=== PATIENT | male | born 1935 | race Caucasian/White ===

== ENCOUNTER 2019-11-05 12:05 | Outpatient (CLI) | payer MEDICARE, SELFPAY ==
[2019-11-05 13:00] LABS: Hematocrit 44.6 % (42.0-52.0); Hemoglobin 14.4 g/dL (14.0-18.0); Mean Corpuscular HGB Conc 32.3 g/dl (32-36); Mean Corpuscular Hemoglobin 32.6 pg (26-34); Mean Corpuscular Volume 100.9 fl (80-100); Mean Platelet Volume 12.2 fl (7.4-10.4); Platelet Count Result 178 k/mm3 (150-375); Red Blood Count 4.42 M/mm3 (4.6-6.20); Red Cell Distribution Width 12.7 % (11.5-14.5); White Blood Count 6.4 K/mm3 (4.5-10.0)
== END 2019-11-05 12:06 | disposition home or self-care (01) ==
LOC: ANHLAB 12:12
PROVIDERS: PCP Internal Medicine; Visit Provider Internal Medicine Gastroenterology
DX: R19.4 Change in bowel habit (principal)
CPT/HCPCS: 36415; 85027

== ENCOUNTER 2019-12-01 00:19 | Day surgery (SDC) | payer MEDICARE, SELFPAY ==
[2019-11-30 13:42] VITALS: BMI 30.6
[2019-12-01 07:53] VITALS: BP 167/79; PULSE 76; RESP 18; TEMP 37.3; O2SAT 95; BMI 29.1
--- NOTE | 2019-12-01 07:57 | P.PNAN_ITS ---
Anes - Initial Pre Proc Eval Procedure: Operation Date: 12/01/19 08:30 Proposed Procedures p Colonoscopy - Cezar Hong MD Date/Time: 12/01/19 07:57 Surgeon: Czear Hong MD Pre Op Diagnosis: Occult GI Bleeding Patient Data Age: 84 Gender: M Height: 1.75 m Weight: 94 kg Allergies Allergy/AdvReac Type Severity Reaction Status Date / Time cephalexin Allergy Unknown Keflex Verified 12/01/19 07:51 ciprofloxacin Allergy Unknown Hives / Verified 12/01/19 07:51 Red Face nite time equate Allergy Severe Swelling Uncoded 12/01/19 07:51 PHENAL (VEGATABLE) Allergy Intermediate RASH Uncoded 12/01/19 07:51 Home Medications Medication Instructions Recorded Confirmed Type acetaminophen 500 mg tablet 500 mg PO Q4-6H PRN tablet 07/22/19 11/30/19 History aspirin 81 mg tablet,delayed 81 mg PO DAILY 07/22/19 11/30/19 History release gabapentin 100 mg capsule 200 mg PO BID cap 07/22/19 11/30/19 History omega 9-ahv-bpb-fish oil 1,000 mg 1 cap PO DAILY cap 07/22/19 11/30/19 History (120 mg-180 mg) capsule omeprazole 20 mg capsule,delayed 20 mg PO DAILY 07/22/19 11/30/19 History release vit C 250 mg-E 200 unit-zinc 40 1 tablet PO BID 07/22/19 11/30/19 History mg-copper 1 pd-ccypfz-cjndwe capsule budesonide-formoterol HFA 160 2 puff INHALATION Q12H #10.2 gm 07/26/19 11/30/19 Rx mcg-4.5 mcg/actuation aerosol inhaler albuterol sulfate 90 mcg/actuation 2 puff INHALATION Q4-6H PRN #8.5 gm 11/21/19 11/30/19 Rx aerosol inhaler lisinopril 20 mg tablet 20 mg PO BID #180 tablet 11/28/19 12/01/19 Rx allopurinol 150 mg PO DAILY 11/30/19 11/30/19 History aspirin-caffeine [Back and Body 1 tablet PO PRN PRN 11/30/19 11/30/19 History Pain Reliever] naproxen sodium [Aleve] 220 mg PO Q12H PRN 11/30/19 11/30/19 History Patient hx anesthesia problems: none Family hx anesthesia problems: none [facility] Past Medical History Medical History (Updated 11/30/19 @ 14:14 by Sumeet Jennings DO) Chronic low back pain COPD (chronic obstructive pulmonary disease) History of cervical fracture History of gout Hypertension FELIX (nonalcoholic steatohepatitis) Vitamin D deficiency Surgical History Surgical History (Updated 11/30/19 @ 14:14 by Sumeet Jennings DO) History of appendectomy Social History Social History Smoking status: Former smoker Smoking end date: 09/21/09 Alcohol intake: current Anes - Eval Final PreProcedure Day of Procedure 12/01/19 07:57 Patient weight: obese Heart: regular rate and rhythm Lungs: clear to auscultation and normal air movement Airway: Mallampati scale class II Neurological: alert and oriented Last oral intake: >/= 8 hours ASA classification: III Emergent: no Anesthetic plan: proceed Anesthesia type and monitoring: general GIVS and standard monitoring Informed Consent: The patient's anesthetic plan and its attendant risks and benefits were discussed with the patient/family/POA. Questions were solicited and answers provided to the satisfaction of the patient/family/POA.
[2019-12-01] MEDS: LACTATED RINGERS 1,000 ML 150 ML IV CONT (08:06)
[2019-12-01] MEDS: SIMETHICONE ORAL SUSPENSION 20 MG/0.3 ML 30 ML BOTTLE 0.6 ML IRRIGATION (08:43)
--- NOTE | 2019-12-01 08:57 | WPDGICN ---
Assessment and Plan Additional Plan This is an 84-year-old white male patient seen in evaluation at the request of Dr. Gagandeep Adams. patient recently noticed bright red blood per rectum. He noticed an episode of lower abdominal pain associated with this. He no longer sees blood in his stools. Follow-up stool Hemoccult however remains Hemoccult positive. Patient denies any additional bleeding. He states his abdominal pain is resolved. Family history is noncontributory. His mother had breast cancer. Past medical history is significant for COPD, hypertension, GE reflux disease, medications include lisinopril, omeprazole, allopurinol, gabapentin, Symbicort, albuterol, no known medical allergies. Physical exam reveals patient to be comfortable at rest. Vital signs stable. HEENT exam unremarkable. Lungs are clear to auscultation and percussion. Heart is without murmur or extra sounds. Abdominal exam bowel sounds are present soft nontender with no organomegaly. Digital external rectal exam normal. Impression 1. Occult blood in stool. 2. History of rectal bleeding. 3. Change in bowel habits. 4. COPD. Plan is for high-fiber diet. A colonoscopy has been requested will be performed. Further recommendations will be given after endoscopy. GI Consult Note Consult date/time: 12/01/19 08:57 HPI: Horacio Garcia is a 84 year old male [facility] Past Medical History Medical History (Updated 11/30/19 @ 14:14 by Sumeet Jennings DO) Chronic low back pain COPD (chronic obstructive pulmonary disease) History of cervical fracture History of gout Hypertension FELIX (nonalcoholic steatohepatitis) Vitamin D deficiency Surgical History Surgical History (Updated 11/30/19 @ 14:14 by Sumeet Jennigns DO) History of appendectomy Social History Social History Smoking status: Former smoker Smoking end date: 09/21/09 Alcohol intake: current Meds Home Medications and Allergies Home Medications Medication Instructions Recorded Confirmed Type acetaminophen 500 mg tablet 500 mg PO Q4-6H PRN tablet 07/22/19 11/30/19 History aspirin 81 mg tablet,delayed 81 mg PO DAILY 07/22/19 11/30/19 History release gabapentin 100 mg capsule 200 mg PO BID cap 07/22/19 11/30/19 History omega 9-fve-bls-fish oil 1,000 mg 1 cap PO DAILY cap 07/22/19 11/30/19 History (120 mg-180 mg) capsule omeprazole 20 mg capsule,delayed 20 mg PO DAILY 07/22/19 11/30/19 History release vit C 250 mg-E 200 unit-zinc 40 1 tablet PO BID 07/22/19 11/30/19 History mg-copper 1 xh-fpoybn-ecqsln capsule budesonide-formoterol HFA 160 2 puff INHALATION Q12H #10.2 gm 07/26/19 11/30/19 Rx mcg-4.5 mcg/actuation aerosol inhaler albuterol sulfate 90 mcg/actuation 2 puff INHALATION Q4-6H PRN #8.5 gm 11/21/19 11/30/19 Rx aerosol inhaler lisinopril 20 mg tablet 20 mg PO BID #180 tablet 11/28/19 12/01/19 Rx allopurinol 150 mg PO DAILY 11/30/19 11/30/19 History aspirin-caffeine [Back and Body 1 tablet PO PRN PRN 11/30/19 11/30/19 History Pain Reliever] naproxen sodium [Aleve] 220 mg PO Q12H PRN 11/30/19 11/30/19 History Allergies Allergy/AdvReac Type Severity Reaction Status Date / Time cephalexin Allergy Unknown Keflex Verified 12/01/19 07:51 ciprofloxacin Allergy Unknown Hives / Verified 12/01/19 07:51 Red Face nite time equate Allergy Severe Swelling Uncoded 12/01/19 07:51 PHENAL (VEGATABLE) Allergy Intermediate RASH Uncoded 12/01/19 07:51 Vital Signs Vital Signs - 24 hr 12/01/19 07:53 Temperature 37.3 C Pulse Rate 76 Respiratory Rate 18 Blood Pressure 167/79 H Pulse Oximetry 95
[2019-12-01 08:59] VITALS: BP 88/56; PULSE 70; RESP 18; O2SAT 92
[2019-12-01 09:09] VITALS: BP 115/56; PULSE 71; RESP 18; O2SAT 94
[2019-12-01 09:19] VITALS: BP 129/77; PULSE 64; RESP 18; O2SAT 93
== END 2019-12-01 09:43 | disposition home or self-care (01) ==
PROVIDERS: PCP Internal Medicine; Visit Provider Internal Medicine Gastroenterology
PROC: 0DJD8ZZ Inspection of Lower Intestinal Tract, Via Natural or Artificial Opening Endoscopic (ICD-10-PCS; CPT 45378; principal; 2019-12-01 08:30)
DX: K62.5 Hemorrhage of anus and rectum (principal); D12.5 Benign neoplasm of sigmoid colon; K63.5 Polyp of colon; K57.30 Diverticulosis of large intestine without perforation or abscess without bleeding; K64.8 Other hemorrhoids; R19.4 Change in bowel habit; I10 Essential (primary) hypertension; J44.9 Chronic obstructive pulmonary disease, unspecified; K75.81 Nonalcoholic steatohepatitis (NASH); E55.9 Vitamin D deficiency, unspecified; M10.9 Gout, unspecified; Z79.82 Long term (current) use of aspirin; E66.9 Obesity, unspecified; Z68.29 Body mass index [BMI] 29.0-29.9, adult
CPT/HCPCS: 45385; 88305; J2704; J7120

== ENCOUNTER 2020-02-07 12:02 | Emergency (ER) | payer MEDICARE, SELFPAY ==
--- NOTE | ~2020-02-07 | CT_ITS ---
EXAMINATION: CT abdomen pelvis wo con DATE: 02/07/2020 16:11 INDICATION: Abdominal pain, diarrhea TECHNIQUE: Computed tomography (CT) of the abdomen and pelvis was performed without intravenous contr ast. Automated exposure control and iterative reconstruction technique were employed. Exam dose: 831 .37 mGy-cm total exam DLP. COMPARISON: 07/02/[address] abdomen pelvis FINDINGS: There is focal infiltrate or atelectasis at the base of the middle lobe. Normal heart size. No pericardial or pleural effusion. There are 2 approximately 8 mm faceted calcified dependent gallstones. No pericholecystic fluid or in flammation. There is a small sliding hiatal hernia. Hepatic steatosis. There are scattered pancreatic calcifications, consistent with chronic pancreatitis. No pancreatic m ass lesion or pancreatic duct dilatation. There is bilateral renal atrophy. Contrast material is noted within the renal collecting systems, ure ters and urinary bladder. No hydroureteronephrosis. There are bilateral fat containing inguinal hernias. There is prominent prostate enlargement. There are numerous diverticula of the left colon; no evidence of diverticulitis. No bowel obstructio n or intraperitoneal free air. There is extensive calcification of the abdominal aorta; focal infrarenal abdominal aortic dilatation up to 2.6 cm diameter. Splenic calcification of the origins of the celiac and superior mesenteric an d particularly the renal arteries. Prominent calcification of the iliac and femoral arteries.. No intraperitoneal or retroperitoneal or pelvic mass lesion or adenopathy or ascites. Diffuse osteopenia. Degenerative changes of the lower thoracic and lumbar spine, including prominent degenerative changes at the apophyseal joints with associated grade 1 anterolisthesis at L4-5. IMPRESSION: Cholelithiasis Hepatic steatosis Small sliding hiatal hernia Chronic pancreatitis Bilateral renal atrophy Prominent prostate enlargement Diverticulosis of the colon; no CT evidence of diverticulitis Reviewed, dictated and finalized at [facility]. Reviewed, dictated and finalized at [facility].
--- NOTE | ~2020-02-07 | CT_ITS ---
EXAMINATION: CTA chest PE protocol DATE: 02/07/2020 14:14 INDICATION: Shortness of breath. Fever and chills. TECHNIQUE: Computed tomography (CT) pulmonary angiogram of the chest was performed with 100 mL Omnipa que-350 intravenous contrast. Additional 3D reconstructions utilizing coronal maximum intensity proje ction (MIP) were performed. The dose-length product was 739.66 mGy-cm. COMPARISON: None FINDINGS: Excellent contrast opacification of the pulmonary arteries. There is mild streak artifact from dense contrast in the superior vena cava and right atrium. Normal scattered motion artifact which does not significantly limit evaluation no pulmonary embolism. Small region of atelectasis/scarring in the rig ht middle lobe. Mild emphysema. Small region of chronic tree-in-bud opacity in the anterior segment o f the right upper lobe likely sequela of chronic pneumonia. Unchanged pattern of mild regular septal line thickening at the periphery of the lower lobes which could represent mild pulmonary edema, atele ctasis or nonspecific interstitial pneumonia (NSIP) pattern chronic interstitial lung disease. No ple ural effusion or pneumothorax. Heart size is normal. Atherosclerotic coronary artery calcification. N o pericardial effusion. Aortic valve calcification. Thoracic aorta is normal in caliber with no disse ction. Again seen is a normal anatomic variant retroesophageal aberrant right subclavian artery. Calc ified AP window lymph nodes consistent with old granulomatous disease. Diffuse hepatic steatosis. Cho lelithiasis. Few scattered dystrophic pancreatic calcifications likely sequela of chronic pancreatiti s. There are bridging osteophytes at multiple levels in the spine, consistent with diffuse idiopathic skeletal hyperostosis (DISH). IMPRESSION: 1. No pulmonary embolism or other acute cardiopulmonary disease. 2. Mild emphysema. 3. Unchanged mild peripheral septal line thickening the bilateral lower lungs which could represent m ild pulmonary edema or atelectasis in the acute setting or and SI PD pattern chronic interstitial fib rosis. 4. Cholelithiasis and pancreatic calcifications which are likely sequela of chronic pancreatitis. Reviewed, dictated and finalized at [facility]. IMPRESSION: 1. No pulmonary embolism or other acute cardiopulmonary disease. 2. Mild emphysema. 3. Unchanged mild peripheral septal line thickening the bilateral lower lungs w hich could represent mild pulmonary edema or atelectasis in the acute setting o r and SI PD pattern chronic interstitial fibrosis. 4. Cholelithiasis and pancreatic calcifications which are likely sequela of chr onic pancreatitis.
--- NOTE | ~2020-02-07 | XR_ITS ---
XR chest 1V portable DATE: 02/07/2020 12:51 INDICATION: Shortness of breath TECHNIQUE: Portable AP chest on 02/07/2020 COMPARISON: 07/01/2019 CT pulmonary scan 03/07/2019 2 view chest FINDINGS: Heart size is within normal range. There is aortic calcification and mild tortuosity. No hi lar or mediastinal enlargement. Bilateral hyperinflation. No pulmonary infiltrate or consolidation, pleural effusion or pulmonary vas cular congestion or pneumothorax. Diffuse osteopenia. Degenerative spurring of the thoracic spine. IMPRESSION: No active cardiopulmonary disease Reviewed, dictated and finalized at [facility].
--- NOTE | 2020-02-07 12:08 | ECG_ITS ---
Measurements Intervals [place] Rate: 78 P: 67 [place]: 156 QRS: 93 QRSD: 132 T: 47 QT: 369 QTc: 422 Interpretive Statements SINUS RHYTHM RIGHT BUNDLE BRANCH BLOCK ABNORMAL ECG Electronically Signed On 02-07-2020 12:40:37 CDT by Wild Ibarra D.O.
[2020-02-07 12:26] LABS: Basophils Percent Auto 0.6 % (0.2-1.2); Eosinophils Absolute Auto 0.1 K/mm3 (0-0.3); Eosinophils Percent Auto 1.9 % (0-4.4); Hematocrit 45.1 % (42.0-52.0); Immature Granulocyte Absolute 0.05 K/mm3 (0.00-0.031); Immature Granulocyte Percent A 0.8 % (0-0.5); Lymphocytes Absolute Auto 1.76 K/mm3 (0.9-3.2); Lymphocytes Percent Auto 27.6 % (18.3-44.2); Mean Corpuscular HGB Conc 33.3 g/dl (32-36); Mean Corpuscular Hemoglobin 32.5 pg (26-34); Mean Corpuscular Volume 97.6 fl (80-100); Mean Platelet Volume 11.7 fl (7.4-10.4); Monocytes Absolute Auto 0.7 K/mm3 (0.1-0.6); Monocytes Percent Auto 11.4 % (2.6-8.5); Neutrophils Absolute Auto 3.7 K/mm3 (1.3-6.7); Neutrophils Percent Auto 57.7 % (45.5-73.1); Platelet Count Result 171 k/mm3 (150-375); Red Blood Count 4.62 M/mm3 (4.6-6.20); Red Cell Distribution Width 12.3 % (11.5-14.5); White Blood Count 6.4 K/mm3 (4.5-10.0)
[2020-02-07 12:34] VITALS: BP 180/77; PULSE 77; RESP 20; TEMP 36.8; O2SAT 98
[2020-02-07 12:37] LABS: Lipase 65 U/L (23-300)
[2020-02-07 12:38] LABS: Partial Thromboplastin Time 32.5 SECONDS (22.3-36.8)
[2020-02-07 12:41] LABS: Alanine Aminotransferase 25 U/L (4-50); Albumin Level 4.4 g/dL (3.5-5.1); Alkaline Phosphatase 75 U/L (38-126); Aspartate Amino Transferase 50 U/L (17-59); Bilirubin,Total 0.8 mg/dL (0.2-1.3); Blood Urea Nitrogen 15 mg/dL (9-20); CRP 1.3 mg/dL (<1.0); Calcium 9.5 mg/dL (8.4-10.2); Carbon Dioxide 24 mmol/L (22-30); Chloride 107 mmol/L (98-107); Estimated Glomerular Filt Rate > 60; Glucose 113 mg/dL (75-110); Sodium 139 mmol/L (137-145)
[2020-02-07 12:44] LABS: Lactic Acid Reflex 1.4 mmol/L (0.7-2.1)
[2020-02-07 12:47] LABS: NT Pro B Type Natriuretic Pept 255 PG/ML (5-100)
--- NOTE | 2020-02-07 12:48 | ED.GENADULT ---
HPI - General Adult General Chief complaint: Shortness of Breath/Dyspnea <XAVIER Estevez Last Filed: 02/07/20 16:54> Stated complaint: fever/chills/sob <XAVIER Estevez Last Filed: 02/07/20 16:54> Time Seen by Provider: 02/07/20 12:03 <XAVIER Estevez Last Filed: 02/07/20 16:54> Source: patient <XAVIER Estevez Last Filed: 02/07/20 16:54> Mode of arrival: ambulatory <XAVIER Estevez Last Filed: 02/07/20 16:54> Limitations: no limitations <XAVIER Estevez Last Filed: 02/07/20 16:54> History of Present Illness HPI narrative: Patient is a 84-year-old male who presents to emergency department for evaluation of shortness of breath has had some runny nose mild sore throat over the course of the last 5 days notes he does have a similar history with COPD as the etiology patient lives at home by himself currently denies any pain injury or trauma patient denies any sick contacts patient on arrival is in the room in no distress notes that he has been using his inhalers with some improvement. Patient was referred to emergency department for evaluation <XAVIER Estevez Last Filed: 02/07/20 16:54> Related Data Home medications: Home Medications Medication Instructions Recorded Confirmed gabapentin 100 mg capsule 200 mg PO BID cap 07/22/19 12/19/19 omega 0-whp-bwl-fish oil 1,000 mg 1 cap PO DAILY cap 07/22/19 12/19/19 (120 mg-180 mg) capsule vit C 250 mg-E 200 unit-zinc 40 1 tablet PO BID 07/22/19 12/19/19 mg-copper 1 rv-expdgd-xvmvcp capsule naproxen sodium [Aleve] 220 mg PO Q12H PRN 11/30/19 12/19/19 allopurinol 300 mg tablet 150 mg PO HS tablet 12/19/19 12/19/19 aspirin 325 mg tablet 325 mg PO DAILY 12/19/19 12/19/19 amlodipine [Norvasc] 5 mg PO HS 02/07/20 <XAVIER Estevez Last Filed: 02/07/20 16:54> Allergies/adverse reactions: Allergies Allergy/AdvReac Type Severity Reaction Status Date / Time cephalexin Allergy Unknown Keflex Verified 02/07/20 12:15 ciprofloxacin Allergy Unknown Hives / Verified 02/07/20 12:15 Red Face nite time equate Allergy Severe Swelling Uncoded 12/19/19 09:09 fennal Allergy Rash Uncoded 02/07/20 12:16 <Obed Quinones PA-C - Last Filed: 02/07/20 16:54> Review of Systems Review of Systems: All systems reviewed & are unremarkable except as noted in HPI and below <Obed Quinones PA-C - Last Filed: 02/07/20 16:54> PMFSH Past Medical History Medical History: Medical History Chronic low back pain COPD (chronic obstructive pulmonary disease) History of cervical fracture History of gout Hypertension FELIX (nonalcoholic steatohepatitis) Vitamin D deficiency <Obed Quinones PA-C - Last Filed: 02/07/20 16:54> Surgical History Surgical History: Surgical History History of appendectomy <Obed Quinones PA-C - Last Filed: 02/07/20 16:54> Social History Social History: Social History Smoking status: Former smoker Smoking end date: 09/21/09 Alcohol intake: current Gender identity (if verbalized by the patient): Male <Obed Quinones PA-C - Last Filed: 02/07/20 16:54> Exam Narrative: Exam Narrative: GENERAL: Well-appearing, well-nourished, and in no acute distress. HEAD: Normocephalic, atraumatic. EYES: PERRLA and EOMI. ENT: Nares clear, no rhinorrhea or epistaxis. Mucous membranes moist. Oropharynx without tonsillar hypertrophy exudate or other lesions. NECK: Supple. No adenopathy or masses. CHEST: Clear to auscultation. No respiratory distress. No wheezes rales or rhonchi HEART: Regular rate and rhythm. No murmur heard. Normal peripheral pulses. ABDOMEN: Soft, nontender, nondistended, normal active bowel sounds. EXTREMITIES: Normal range of motio
[2020-02-07 12:50] LABS: Troponin I < 0.012 ng/mL (0.000-0.034)
[2020-02-07 12:58] LABS: D Dimer 1.97 ug/mL (<0.48)
[2020-02-07 13:05] LABS: Alveolar/Arterial O2 Gradient 20.1 mmHg; Base Excess ABG 0.4 mEq/l (+/-2.0); Carboxyhemoglobin 1.1 % THb (0-2.0); Fractional Inspired Oxygen 21 %; HCO3 ABG 24.5 mEq/l (22.0-26.0); Methemoglobin ABG 0.2 %THb (0-1.5); Oxygen Content ABG 19.3 %vol (16.0-22.0); Oxygen Saturation ABG 96.6 % (95.0-100.0); Oxyhemoglobin 95.6 % THb (90.0-100.0); PCO2 ABG 37.8 mmHg (35.0-45.0); PO2 ABG 84.4 mmHg (80.0-100.0); PO2 FiO2 Ratio Arterial Blood 4.02 %; Reduced Hemoglobin 3.1 %THb (0-5.0); Total Hemoglobin 14.3 g/dL (12.0-18.0); pH ABG 7.429 (7.350-7.450)
[2020-02-07 13:06] LABS: Device ROOM AIR; Site Drawn RIGHT BRACHIAL
[2020-02-07 13:15] LABS: Prothrombin Time 12.4 Seconds (11.1-14.7)
[2020-02-07 17:07] LABS: Add Urine Microscopic? NO; Appearance Urine Clear (Clear); Bilirubin Urine Negative (Negative); Blood Urine Negative (Negative); Color Urine Colorless (Yellow); Glucose Urine UA Negative (Negative); Ketones Urine Negative (Negative); Leukocyte Esterase Ur Negative LEU/UL (Negative); Nitrate Urine Negative (Negative); Protein Urine Negative (Negative); Specific Grav Ur 1.016 (1.001-1.035); Urobilinogen Urine Negative mg/dL (<2.0)
[2020-02-07 17:14] VITALS: BP 181/80; PULSE 71; RESP 17; O2SAT 98
[2020-02-08 04:19] LABS: SARS-CoV-2 RNA PCR Negative
== END 2020-02-07 17:15 | disposition home or self-care (01) ==
PROVIDERS: Emergency Medicine Emergency Medical Services; Emergency Provider Emergency Medicine; PCP Internal Medicine
DX: J44.1 Chronic obstructive pulmonary disease with (acute) exacerbation (principal); Z20.828 Contact with and (suspected) exposure to other viral communicable diseases; M10.9 Gout, unspecified; I10 Essential (primary) hypertension; E55.9 Vitamin D deficiency, unspecified; K75.81 Nonalcoholic steatohepatitis (NASH); Z87.891 Personal history of nicotine dependence; K80.20 Calculus of gallbladder without cholecystitis without obstruction; K44.9 Diaphragmatic hernia without obstruction or gangrene; K86.1 Other chronic pancreatitis; N26.1 Atrophy of kidney (terminal); K57.90 Diverticulosis of intestine, part unspecified, without perforation or abscess without bleeding; N40.0 Benign prostatic hyperplasia without lower urinary tract symptoms; R91.8 Other nonspecific abnormal finding of lung field
CPT/HCPCS: 36415; 36600; 71045; 71275; 74176; 80053; 81003; 82375; 82805; 83050; 83605; 83690; 83880; 84484; 85025; 85380; 85610; 85730; 86140; 87040; 87635; 93005; 99284; C9803; Q9967; U0003

== ENCOUNTER 2020-03-16 12:41 | Emergency (ER) | payer MEDICARE, SELFPAY ==
[2020-03-16 13:02] VITALS: BP 135/88; PULSE 60; RESP 16; TEMP 36.7; O2SAT 99
--- NOTE | 2020-03-16 13:11 | ED.LOWEXIN ---
HPI - Extremity Injury (Lower) General Chief Complaint: Extremity Injury, Lower Stated Complaint: right leg pain Time Seen by Provider: 03/16/20 13:11 Source: patient Mode of arrival: ambulatory Limitations: no limitations History of Present Illness HPI Narrative: Horacio Garcia is an 84 yo male with a PMH of COPD, gout, GERD, comes to express care with right leg pulsation. Concern what is causing that on his lower right leg; has not been taking his aspirin daily as prescribed Related Data Home Medications Medication Instructions Recorded Confirmed gabapentin 100 mg capsule 200 mg PO BID cap 07/22/19 12/19/19 omega 0-bne-izv-fish oil 1,000 mg 1 cap PO DAILY cap 07/22/19 12/19/19 (120 mg-180 mg) capsule vit C 250 mg-E 200 unit-zinc 40 1 tablet PO BID 07/22/19 12/19/19 mg-copper 1 rl-yeanja-pivlsz capsule naproxen sodium [Aleve] 220 mg PO Q12H PRN 11/30/19 12/19/19 allopurinol 300 mg tablet 150 mg PO HS tablet 12/19/19 12/19/19 aspirin 325 mg tablet 325 mg PO DAILY 12/19/19 12/19/19 amlodipine [Norvasc] 5 mg PO HS 02/07/20 Allergies Allergy/AdvReac Type Severity Reaction Status Date / Time cephalexin Allergy Unknown Keflex Verified 02/07/20 12:15 ciprofloxacin Allergy Unknown Hives / Verified 02/07/20 12:15 Red Face nite time equate Allergy Severe Swelling Uncoded 12/19/19 09:09 fennal Allergy Rash Uncoded 02/07/20 12:16 Review of Systems Review of Systems: Narrative: CONSTITUTIONAL: Denies fever, chills, sweats. EYES: Denies visual changes, redness, discharge. ENT: Denies rhinorrhea, congestion, sore throat, otalgia. CARDIOVASCULAR: Denies chest pain, palpitations, edema. RESPIRATORY: Denies dyspnea, wheezing, cough GASTROINTESTINAL: Denies abdominal pain, nausea, vomiting, diarrhea. GENITOURINARY: Denies dysuria, hematuria, abnormal discharge SKIN: Denies rash or itching. NEUROLOGIC: Denies numbness, or focal weakness. PSYCHIATRIC: Denies anxiety or depression. Right lower leg small superficial lump PMFSH Past Medical History Medical History Chronic low back pain COPD (chronic obstructive pulmonary disease) History of cervical fracture History of gout Hypertension FELIX (nonalcoholic steatohepatitis) Vitamin D deficiency Surgical History Surgical History History of appendectomy Family History Family History Mother Family history of malignant neoplasm of breast in first degree relative Patient's mother is Father Patient's father is Acute myocardial infarction Sibling Patient's sister is Patient's brother is Acute myocardial infarction Other Cerebrovascular accident Social History Social History Smoking status: Former smoker Smoking end date: 09/21/09 Alcohol intake: current Gender identity (if verbalized by the patient): Male Comments At time of signature, I agree with nursing past medical, surgical, social and family history. There is no relevant family history pertinent to the presenting complaint. Exam Narrative: Exam Narrative: GENERAL: This is a well-nourished, well-developed patient, in mild distress. HEAD: normocephalic, atraumatic. EYES: Sclera clear/white. Vision is grossly intact. EARS: External ears normal, . Hearing grossly intact. NOSE: External nose normal without nasal discharge, nares without redness, no rhinorrhea. THROAT: Mucous membranes moist, NECK: Neck supple, CARDIOVASCULAR: Regular rate and rhythm without murmurs, gallops, or rubs. RESPIRATORY: Clear to auscultation. Breath sounds equal bilaterally. No wheezes, rales, or rhonchi. GASTROINTESTINAL: Abdomen soft, SKIN: warm, intact with no suspicious lesions or rash, good texture and turgor. s
== END 2020-03-16 13:40 | disposition home or self-care (01) ==
PROVIDERS: Emergency Provider Nurse Practitioner; PCP Internal Medicine
DX: M62.838 Other muscle spasm (principal); J44.9 Chronic obstructive pulmonary disease, unspecified; M10.9 Gout, unspecified; K21.9 Gastro-esophageal reflux disease without esophagitis; Z79.82 Long term (current) use of aspirin; K75.81 Nonalcoholic steatohepatitis (NASH); E55.9 Vitamin D deficiency, unspecified; Z87.891 Personal history of nicotine dependence
CPT/HCPCS: 99213; G0463

== ENCOUNTER 2020-03-18 14:25 | Observation (INO) | payer MEDICARE, SELFPAY ==
[2020-03-18] VITALS (7 sets, daily range): BP systolic 138–174; BP diastolic 56–90; PULSE 50–68; RESP 16–18; TEMP 35.3–36.6; O2SAT 95–99; BMI 31.2
--- NOTE | ~2020-03-18 | XR_ITS ---
EXAMINATION: XR hip RT 2V w AP pelvis INDICATION: Right hip pain TECHNIQUE: AP view of the pelvis and two views of the right hip are obtained. COMPARISON: 08/03/2014 FINDINGS: There is moderate bilateral hip osteoarthritis. Bone alignment is normal. There is no fract ure. Calcified atherosclerosis is noted. IMPRESSION: 1. Moderate hip osteoarthritis without acute findings. Reviewed, dictated and finalized at location A.
--- NOTE | ~2020-03-18 | XR_ITS ---
EXAMINATION: XR chest 2V DATE: 03/18/2020 15:56 INDICATION: Weakness and chest heaviness TECHNIQUE: AP and lateral views of the chest are obtained. COMPARISON: 02/07/2020 FINDINGS: The lungs are free of acute opacities. There is no pleural effusion or pneumothorax. The ca rdiomediastinal silhouette is normal. There are bridging osteophytes at multiple levels in the spine, consistent with diffuse idiopathic skeletal hyperostosis (DISH). IMPRESSION: 1. No acute cardiopulmonary abnormality. Reviewed, dictated and finalized at location A.
--- NOTE | ~2020-03-18 | CT_ITS ---
EXAMINATION: CT brain wo con INDICATION: Weakness COMPARISON: 12/16/2016 TECHNIQUE: Standard unenhanced head CT. The dose-length product (DLP) was 680.32 mGy-cm. The mA was a djusted according to patient size. Iterative reconstruction technique was employed. FINDINGS: There is no acute intraparenchymal hemorrhage. No evidence of mass lesion. No evidence of a cute infarction. There is moderate periventricular and subcortical hypodensity probably related to sm all vessel ischemic disease. There is moderate prominence of the sulci and ventricles related to cere bral atrophy. Intracranial calcified cerebral atherosclerosis is noted. There are no extra-axial jasper ections. There is no mass effect or midline shift. Changes in the globes are likely from ocular lens surgery. There is mild mucosal thickening of the paranasal sinuses. IMPRESSION: 1. No acute intracranial abnormality. 2. Age related findings. Reviewed, dictated and finalized at location A.
--- NOTE | ~2020-03-18 | CT_ITS ---
EXAMINATION: CT [facility] EXAM DATE: 03/20/2020 14:51 INDICATION: Right-sided headache. Neck pain. TECHNIQUE: Spiral CT of the cervical spine was performed without contrast. Axial images were reviewe d. Coronal and sagittal reformatted images were also reviewed. The dose-length product (DLP) for thi s examination was 530.15 mGy-cm. The exposure was tailored according to patient size (auto mA exposu re control), and iterative reconstruction (ASIR) was used as additional dose reduction technique. [facility] is no prior study for comparison. FINDINGS: There is moderate disc disease C4-T2, mild to moderate at the upper cervical levels. There is overlying soft tissue swelling. There are no acute fractures identified. There are no osteoblasti c or osteolytic lesions identified. C6 laminectomies. The odontoid process is intact. The lateral ma sses of C1 line up with C2. Aberrant right subclavian artery, congenital variant. Level by level evaluation: C2-C3: There is a mild diffuse disc bulge. Uncovertebral joint arthropathy: Mild to moderate right, mild left. Facet joint arthropathy: Moderate right, mild left. Neural foraminal stenosis: Mild to moderate right, mild left. Central canal stenosis: Minimal. C3-C4: There is a mild to moderate diffuse disc bulge. Uncovertebral joint arthropathy: Moderate bilateral. Facet joint arthropathy: Moderate to severe bilateral. Neural foraminal stenosis: Moderate to severe left, moderate right. Central canal stenosis: Mild.. C4-C5: There is a mild to moderate diffuse disc bulge. Uncovertebral joint arthropathy: Moderate left, mild to moderate right. Facet joint arthropathy: Severe right, mild to moderate left. Neural foraminal stenosis: Moderate to severe right, moderate left. Central canal stenosis: Mild. C5-C6: There is a mild diffuse disc bulge. Uncovertebral joint arthropathy: Moderate. Facet joint arthropathy: Severe right, mild to moderate left. Neural foraminal stenosis: Moderate to severe right, moderate left. Central canal stenosis: Mild. C6-C7: There is a mild diffuse disc bulge. Uncovertebral joint arthropathy: Moderate left, mild to moderate right. Facet joint arthropathy: Moderate bilateral. Neural foraminal stenosis: Severe left, mild to moderate right. Central canal stenosis: Posterior decompression. C7-T1: There is a mild diffuse disc bulge. Uncovertebral joint arthropathy: Mild to moderate left, mild right. Facet joint arthropathy: Mild to moderate bilateral. Neural foraminal stenosis: Mild to moderate right, mild left. Central canal stenosis: Mild. IMPRESSION: 1. Advanced cervical spondylosis as detailed above. Reviewed, dictated and finalized at location B.
--- NOTE | ~2020-03-18 | XR_ITS ---
EXAMINATION: XR chest 2V DATE: 03/19/2020 19:09 INDICATION: Cough TECHNIQUE: AP and lateral views of the chest are obtained. COMPARISON: 03/18/2019 FINDINGS: The lungs are free of acute opacities. There is no pleural effusion or pneumothorax. The ca rdiomediastinal silhouette is normal. There are bridging osteophytes at multiple levels in the spine, consistent with diffuse idiopathic skeletal hyperostosis (DISH). IMPRESSION: 1. No acute cardiopulmonary abnormality. Reviewed, dictated and finalized at location A.
--- NOTE | ~2020-03-18 | XR_ITS ---
. EXAMINATION: XR knee RT 3V DATE: 03/20/2020 13:13 INDICATION: Nontraumatic right knee pain TECHNIQUE: Anteroposterior, 2 oblique, sunrise and crosstable lateral views of the right knee were ob tained COMPARISON: None. FINDINGS: Alignment is normal. No fracture. Chondrocalcinosis including of the menisci at the medial and later al compartments is relatively preserved. Joint spaces on nonweightbearing imaging. Joint space narrow ing in the patellofemoral compartment with osteochondral lesion versus erosion along the cephalad asp ect of the lateral patellar facet. No joint effusion/layering lipohemarthrosis. Small enthesophyte at the patellar insertion of the distal quadriceps tendon. Prominent prepatellar soft tissue swelling. IMPRESSION: 1. Collapsed osteochondral lesion versus erosion at the lateral patellar facet. 2. Chondrocalcinosis at the medial and lateral menisci. Reviewed, dictated and finalized at location A.
--- NOTE | ~2020-03-18 | US_ITS ---
EXAMINATION: US venous doppler LE EXAM DATE: 03/20/2020 14:37 INDICATION: Right leg swelling, pain. TECHNIQUE: Multiple grayscale, color flow and Doppler images of the lower extremity deep venous syste ms bilaterally were obtained and reviewed. Comparison is made to prior examination from 07/02/2019. FINDINGS: Right side: The right common femoral, femoral and profunda veins demonstrate normal color flow, respi ratory variation, augmentation and compressibility. Compressibility, color flow confirmed within the right popliteal, posterior tibial, peroneal, and greater saphenous veins. Left side: The left common femoral, femoral and profunda veins demonstrate normal color flow, respira tory variation, augmentation and compressibility. Compressibility, color flow confirmed within the l eft popliteal, posterior tibial, peroneal, and greater saphenous veins. IMPRESSION: 1. No lower extremity deep venous thrombosis bilaterally. Reviewed, dictated and finalized at location B.
--- NOTE | 2020-03-18 14:33 | ED.GENADULT ---
HPI - General Adult General Chief complaint: Unspecified Stated complaint: weakness/swelling in lower extremities Time Seen by Provider: 03/18/20 14:32 Source: patient and EMS Mode of arrival: EMS Limitations: no limitations History of Present Illness HPI narrative: Patient is an 84-year-old male with a history of COPD, gout, who presents for evaluation of feeling off. Patient states he has felt unwell over the past 48 hours. He states he started a new medication prescribed to him from an urgent care for muscle spasm called baclofen. Since starting that medication he has not been feeling well. Pt states he has taken five tablets over two days and has felt more unwell and weak with each dose of medication. Patient denies any headache, chest pain or leg pain. He denies any leg swelling or rash. No chest pain or shortness of breath. No fever or chills. No rhinorrhea or cough. No recent sick contacts. Patient denies any numbness, he states he feels very weak and his legs are weak. He states he has been unable to walk. He denies dysuria or hematuria. Related Data Home Medications Medication Instructions Recorded Confirmed gabapentin 100 mg capsule 200 mg PO BID cap 07/22/19 12/19/19 omega 2-lku-rod-fish oil 1,000 mg 1 cap PO DAILY cap 07/22/19 12/19/19 (120 mg-180 mg) capsule vit C 250 mg-E 200 unit-zinc 40 1 tablet PO BID 07/22/19 12/19/19 mg-copper 1 ot-mmhfnk-gnjhhm capsule naproxen sodium [Aleve] 220 mg PO Q12H PRN 11/30/19 12/19/19 allopurinol 300 mg tablet 150 mg PO HS tablet 12/19/19 12/19/19 aspirin 325 mg tablet 325 mg PO DAILY 12/19/19 12/19/19 amlodipine [Norvasc] 5 mg PO HS 02/07/20 Allergies Allergy/AdvReac Type Severity Reaction Status Date / Time cephalexin Allergy Unknown Keflex Verified 03/18/20 16:17 ciprofloxacin Allergy Unknown Hives / Verified 03/18/20 16:17 Red Face nite time equate Allergy Severe Swelling Uncoded 12/19/19 09:09 fennal Allergy Rash Uncoded 02/07/20 12:16 Review of Systems Review of Systems: Narrative: CONSTITUTIONAL: Denies fever, chills, or sweats. EYES: Denies visual changes ENT: Denies rhinorrhea, congestion, sore throat, or otalgia. CARDIOVASCULAR: Denies chest pain, palpitations, or edema. RESPIRATORY: Denies cough or dyspnea. GASTROINTESTINAL: Denies abdominal pain, nausea, vomiting, or diarrhea. GENITOURINARY: Denies dysuria or hematuria. SKIN: Denies rash or itching. MUSCULOSKELETAL: Denies back pain, joint pain, or myalgia. NEUROLOGIC: Denies headache, numbness, reports all over body weakness PMFSH Past Medical History Medical History Chronic low back pain COPD (chronic obstructive pulmonary disease) History of cervical fracture History of gout Hypertension FELIX (nonalcoholic steatohepatitis) Vitamin D deficiency Surgical History Surgical History History of appendectomy Family History Family History Mother Family history of malignant neoplasm of breast in first degree relative Patient's mother is Father Patient's father is Acute myocardial infarction Sibling Patient's sister is Patient's brother is Acute myocardial infarction Other Cerebrovascular accident Social History Social History Smoking status: Former smoker Smoking end date: 09/21/09 Alcohol intake: current Gender identity (if verbalized by the patient): Male Exam Narrative: Exam Narrative: GENERAL: Awake, alert, conversant, mildly ill-appearing HEAD: Normocephalic, atraumatic. EYES: PERRLA and EOMI. ENT: Nares clear, no rhinorrhea or epistaxis. Mucous membranes moist. NECK: Supple. CHEST: No respiratory distress, breathing even and non labored HEART: Borderline bradyc
[2020-03-18] MEDS: SODIUM CHLORIDE 0.9% IV 1,000 ML 999 ML IV CONT (15:55)
[2020-03-18 16:06] LABS: Basophils Percent Auto 0.5 % (0.2-1.2); Eosinophils Absolute Auto 0.1 K/mm3 (0-0.3); Eosinophils Percent Auto 1.4 % (0-4.4); Hematocrit 44.8 % (42.0-52.0); Hemoglobin 14.8 g/dL (14.0-18.0); Immature Granulocyte Absolute 0.03 K/mm3 (0.00-0.031); Immature Granulocyte Percent A 0.5 % (0-0.5); Lymphocytes Absolute Auto 1.41 K/mm3 (0.9-3.2); Lymphocytes Percent Auto 21.3 % (18.3-44.2); Mean Platelet Volume 12.1 fl (7.4-10.4); Monocytes Absolute Auto 0.6 K/mm3 (0.1-0.6); Monocytes Percent Auto 9.4 % (2.6-8.5); Neutrophils Absolute Auto 4.4 K/mm3 (1.3-6.7); Neutrophils Percent Auto 66.9 % (45.5-73.1); Platelet Count Result 175 k/mm3 (150-375); Red Blood Count 4.48 M/mm3 (4.6-6.20); Red Cell Distribution Width 13.1 % (11.5-14.5); White Blood Count 6.6 K/mm3 (4.5-10.0)
[2020-03-18 16:15] LABS: INR 0.9; Prothrombin Time 12.3 Seconds (11.1-14.7)
[2020-03-18 16:16] LABS: Partial Thromboplastin Time 30.3 SECONDS (22.3-36.8)
[2020-03-18 16:18] LABS: Alanine Aminotransferase 26 U/L (4-50); Albumin Level 4.2 g/dL (3.5-5.1); Alkaline Phosphatase 72 U/L (38-126); Aspartate Amino Transferase 44 U/L (17-59); Bilirubin,Total 0.8 mg/dL (0.2-1.3); Blood Urea Nitrogen 22 mg/dL (9-20); Calcium 9.4 mg/dL (8.4-10.2); Carbon Dioxide 24 mmol/L (22-30); Chloride 110 mmol/L (98-107); Estimated CRCL calculation 36 ml/min; Estimated Glomerular Filt Rate 48; Glucose 112 mg/dL (75-110); Potassium 4.7 mmol/L (3.4-5.0); Sodium 141 mmol/L (137-145)
[2020-03-18 16:30] LABS: Troponin I < 0.012 ng/mL (0.000-0.034)
[2020-03-18 16:49] LABS: Thyroid Stimulating Hormone 0.381 uIU/mL (0.465-4.680)
[2020-03-18 17:31] LABS: Add Urine Microscopic? YES; Appearance Urine Clear (Clear); Bilirubin Urine Negative (Negative); Blood Urine Negative (Negative); Color Urine Yellow (Yellow); Glucose Urine UA Negative (Negative); Ketones Urine Negative (Negative); Leukocyte Esterase Ur Negative LEU/UL (Negative); Mucus Urine Rare /lpf; Nitrate Urine Negative (Negative); Protein Urine Negative (Negative); RBC Urine 0-2 /hpf (0-2); Specific Grav Ur 1.012 (1.001-1.035); Squamous Epithelial Cell Urine Rare /hpf (Few); Urobilinogen Urine Negative mg/dL (<2.0)
--- NOTE | 2020-03-18 19:30 | ADMGEN ---
This patient, Horacio Garcia, was admitted to Medical Room 349-01. Patient/family oriented to hospital policies and general routines including ID bracelet, bed and alarms, visiting hours, pain management, procedures, bathroom and other care routines, personal items, smoking policy, room service/diet, and visiting hours. Valuables list has been completed. Information on how to activate the Rapid Response Team has been discussed. Patient/Family are encouraged to report perceived risks to care and to ask questions if they do not understand what they are told or what they should do.
[2020-03-18] MEDS: SODIUM CHLORIDE 0.9% IV 1,000 ML 100 ML IV CONT (19:54)
--- NOTE | 2020-03-19 00:46 | PM.IMHP ---
H&P: HPI History of Present Illness Chief complaint: ?Feeling off? Narrative: Date and time of patient contact: 03/19/2020 at 1:00 a.m. Horacio Garcia is a 84 year old male with a past medical history of COPD, hypertension and peripheral neuropathy who presented to the ER due to generalized weakness. The patient had went to urgent care for some pain is anterior right brooks. He was prescribed baclofen 10 mg p.o. 3 times a day as needed. Started the medication on the evening of the . The following day he took 2 doses of the baclofen. He reported that after taking the morning dose of baclofen on the he was more somnolent and kept falling asleep. He was having difficulty with coordination and felt generally weak. He had had decreased oral intake throughout the course of the last 2 days. He had not been having any nausea or vomiting. Despite having these symptoms of weakness he still took 1 dose of the baclofen on the morning of the prior to coming to the ER. He reports that on the morning of the he actually dropped his phone 3 times. He also noted that when he walked into the kitchen his knees buckled under him and he decided to come to the ER. He reports that he usually has to get up to urinate 4 times a night. Does have a CT from a couple of months ago that mentions prominent prostate enlargement. He denies any symptoms of incomplete bladder emptying. With his decreased oral intake he had only urinated 2 times on the . After he received IV fluids in the ER he has noticed increase in urine output but is still only urinated 1 time this evening since arriving to the medical floor. He denies any dysuria. Has had a mild occasional cough over the last several days that he associates with postnasal drip. The patient had initially presented to the urgent care due to anterior right brooks pain and swelling that occurs intermittently. He reports that the pain at times is severe but he denies any pain currently. Pain is just below his knee starting medial to the right tibial tuberosity and extends a couple of inches downward. The areas usually tender to palpation when this occurs. He reports that he has been having intermittent knee pain for the last year. He ambulates with a cane. He has not followed up with an orthopedic surgeon. He does have a history of peripheral neuropathy and reports that his feet are frequently cold. His feet are not cold at this time. He also reports the sensation of pins and needles in his feet. He reports frequent pain in the top of his feet. He does have intermittent foot and ankle swelling or associated with activity. Review of Systems Review of Systems: Narrative: 12 systems were reviewed with pertinent positives and negatives per HPI. Except as documented in the HPI, all other systems were reviewed and are negative. [facility] Past Medical History Medical History (Updated 03/19/20 @ 03:23 by Celina Gonzalez DO) Benign prostatic hyperplasia without lower urinary tract symptoms Chronic low back pain COPD (chronic obstructive pulmonary disease) Gastroesophageal reflux disease Gout History of cervical fracture History of gout Hyperlipidemia Hypertension Macular degeneration With right eye blindness FELIX (nonalcoholic steatohepatitis) Peripheral neuropathy Due to prior cervical spine injury Vitamin D deficiency Surgical History Surgical History (Updated 03/19/20 @ 01:02 by Celina Gonzalez DO) H/O cervical spine surgery Due to neck fracture in 1971 H/O colonoscopy with polypectomy History of appendectomy History of cataract extraction with lens replacement Right eye History of lumbar surgery L4 Family History Family History (Updated 03/19/20 @ 00:54 by Celina Gonzalez DO) Mother Family history of malignant neoplasm of breast in first degree relative Patient's mother is Father , At 81 years of age Acute myocardial infarction
[2020-03-19 05:48] LABS: Blood Urea Nitrogen 19 mg/dL (9-20); Carbon Dioxide 28 mmol/L (22-30); Chloride 110 mmol/L (98-107); Estimated CRCL calculation 43 ml/min; Estimated Glomerular Filt Rate 58; Glucose 94 mg/dL (75-110); Potassium 4.1 mmol/L (3.4-5.0); Sodium 141 mmol/L (137-145)
[2020-03-19 05:51] VITALS: BP 154/59; PULSE 50; RESP 16; TEMP 36.4; O2SAT 97
[2020-03-19] MEDS: SODIUM CHLORIDE 0.9% IV 1,000 ML 100 ML IV CONT (06:41)
[2020-03-19] MEDS: ACETAMINOPHEN 325 MG TABLET 650 MG PO (06:51)
[2020-03-19] MEDS: ENOXAPARIN 40 MG/0.4 ML SYRINGE SUB-Q (10:08)
[2020-03-19] MEDS: ASPIRIN 81 MG ENTERIC TABLET PO (10:08)
[2020-03-19] MEDS: PANTOPRAZOLE 40 MG TABLET PO (10:09)
[2020-03-19] MEDS: OMEGA 3 POLYUNSAT FATTY ACIDS 1 GM CAP PO (10:09)
[2020-03-19] MEDS: GABAPENTIN 100 MG CAPSULE 200 MG PO ×2 (10:09→16:31)
[2020-03-19] MEDS: TAMSULOSIN HCL 0.4 MG CAPSULE PO (10:09)
[2020-03-19] MEDS: OPTI-GEN TAB 1 TABLET PO ×2 (10:09→16:31)
[2020-03-19 10:13] LABS: Free T4 Free Thyroxine 0.95 ng/mL (0.78-2.19)
[2020-03-19 14:00] VITALS: BP 148/79; PULSE 62; RESP 18; TEMP 36.2; O2SAT 100
--- NOTE | 2020-03-19 14:35 | PM.IMPN ---
Progress Note: A&P Assessment and Plan (1) Adverse drug reaction: Qualifiers: Encounter type: initial encounter Qualified Code(s): T50.905A - Adverse effect of unspecified drugs, medicaments and biological substances, initial encounter Code(s): T50.905A - Adverse effect of unspecified drugs, medicaments and biological substances, initial encounter Status: Acute Assessment and Plan: The patient reported feeling off after taking newly prescribed baclofen. He started the medication on the evening of the and stopped taking it after his morning dose on the . He noted weakness, somnolence, fatigue, and generalized weakness. Baclofen was discontinued. He reports that he is feeling much better from this standpoint. His leg pain has also improved and the discomfort that he describes seems to be related to joint discomfort as as opposed to muscle spasm. He may benefit from referral to orthopedic surgery as outpatient. Plan for PCP follow-up. Continue to monitor. (2) Nocturia associated with benign prostatic hyperplasia: Code(s): N40.1 - Benign prostatic hyperplasia with lower urinary tract symptoms; R35.1 - Nocturia Status: Acute Assessment and Plan: He reports that he usually gets up 4 times a night to urinate. CT abd/pelvis revealed prominent prostate enlargement. Tamsulosin was initiated and he seems to be doing very well from this standpoint. Post void residual was 178cc prior to tamsulosin. Will plan to repeat after initiation of tamsulosis. Continue to monitor. (3) Acute renal injury: Code(s): N17.9 - Acute kidney failure, unspecified Status: Acute Assessment and Plan: The patient presented with Cr 1.4 and BUN 22. His baseline Cr appears to be 1-1.1. This is possibly secondary to decreased oral intake, urinary obstruction, or nephrotoxic medication use. He was on lisinopril 30mg BID which is on hold due to LAUREEN. Amlodipine was incresaed to 10mg PO QD. His Cr has improved today to 1.2 with BUN 19. Flomax was initiated yesterday. Plan to continue discontinue IV fluids. Continue to monitor. (4) COPD (chronic obstructive pulmonary disease): Qualifiers: COPD type: unspecified COPD Qualified Code(s): J44.9 - Chronic obstructive pulmonary disease, unspecified Code(s): J44.9 - Chronic obstructive pulmonary disease, unspecified Status: Chronic Assessment and Plan: The patient reports a very mild cough. He has wheezes on physical exam. He denies dyspnea. Plan to continue budesonide-formoterol. Begin nebulized bronchodilators PRN. (5) Hypertension: Qualifiers: Hypertension type: essential hypertension Qualified Code(s): I10 - Essential (primary) hypertension Code(s): I10 - Essential (primary) hypertension Status: Chronic Assessment and Plan: Blood pressures were reviewed and were elevated yesterday but are improving. Lisinopril is on hold due to LAUREEN and amlodipine was increased to 10mg QD from 5 mg. Will likely plan to resume lisinopril tomorrow at no higher than 40mg QD. Continue to monior. (6) Gastroesophageal reflux disease: Qualifiers: Esophagitis presence: esophagitis presence not specified Qualified Code(s): K21.9 - Gastro-esophageal reflux disease without esophagitis Code(s): K21.9 - Gastro-esophageal reflux disease without esophagitis Status: Chronic Assessment and Plan: Chronic. Continue pantoprazole. (7) Cough: Code(s): R05 - Cough Status: Acute Assessment and Plan: The patient reports a mild cough with clear sputum. I suspect that this is due to his COPD as he reports that this is intermittent occasioanlly. He is afebrile without leukocytosis. His CXR had no evidence of pneumonia. Plan to repeat CXR tomorrow and add nebulized bronchodilators for his COPD as he has wheezes on physical exam. (8) DVT prophylaxis:
[2020-03-19] MEDS: SODIUM CHLORIDE 0.9% IV 1,000 ML 75 ML IV CONT (16:31)
[2020-03-19 20:02] VITALS: PULSE 67; RESP 18
[2020-03-19 21:31] VITALS: BP 162/70; PULSE 57; RESP 18; TEMP 36.9; O2SAT 98
[2020-03-19] MEDS: AMLODIPINE BESYLATE 5 MG TABLET 10 MG PO (21:34)
[2020-03-19] MEDS: allopurinoL 150 MG TABLET PO (21:34)
[2020-03-20 05:11] VITALS: BP 150/66; PULSE 62; RESP 16; TEMP 36.4; O2SAT 95
[2020-03-20 05:42] LABS: Basophils Percent Auto 0.5 % (0.2-1.2); Eosinophils Absolute Auto 0.1 K/mm3 (0-0.3); Eosinophils Percent Auto 1.7 % (0-4.4); Hemoglobin 13.8 g/dL (14.0-18.0); Immature Granulocyte Absolute 0.01 K/mm3 (0.00-0.031); Immature Granulocyte Percent A 0.2 % (0-0.5); Lymphocytes Absolute Auto 2.17 K/mm3 (0.9-3.2); Lymphocytes Percent Auto 36.5 % (18.3-44.2); Mean Corpuscular HGB Conc 32.9 g/dl (32-36); Mean Corpuscular Hemoglobin 32.4 pg (26-34); Mean Corpuscular Volume 98.6 fl (80-100); Mean Platelet Volume 11.9 fl (7.4-10.4); Monocytes Absolute Auto 0.6 K/mm3 (0.1-0.6); Monocytes Percent Auto 10.6 % (2.6-8.5); Neutrophils Percent Auto 50.5 % (45.5-73.1); Platelet Count Result 170 k/mm3 (150-375); Red Blood Count 4.26 M/mm3 (4.6-6.20); Red Cell Distribution Width 12.9 % (11.5-14.5); White Blood Count 5.9 K/mm3 (4.5-10.0)
[2020-03-20 06:00] LABS: Alanine Aminotransferase 21 U/L (4-50); Albumin Level 3.8 g/dL (3.5-5.1); Alkaline Phosphatase 63 U/L (38-126); Aspartate Amino Transferase 40 U/L (17-59); Bilirubin,Total 0.9 mg/dL (0.2-1.3); Blood Urea Nitrogen 15 mg/dL (9-20); CRP 0.7 mg/dL (<1.0); Calcium 9.3 mg/dL (8.4-10.2); Carbon Dioxide 25 mmol/L (22-30); Chloride 108 mmol/L (98-107); Estimated CRCL calculation 47 ml/min; Estimated Glomerular Filt Rate > 60; Glucose 93 mg/dL (75-110); Sodium 141 mmol/L (137-145)
[2020-03-20] MEDS: ASPIRIN 81 MG ENTERIC TABLET PO (08:07)
[2020-03-20] MEDS: ACETAMINOPHEN 325 MG TABLET 650 MG PO (08:08)
[2020-03-20] MEDS: GABAPENTIN 100 MG CAPSULE 200 MG PO ×2 (08:08→16:54)
[2020-03-20] MEDS: OMEGA 3 POLYUNSAT FATTY ACIDS 1 GM CAP PO (08:08)
[2020-03-20] MEDS: TAMSULOSIN HCL 0.4 MG CAPSULE PO (08:08)
[2020-03-20] MEDS: OPTI-GEN TAB 1 TABLET PO ×2 (08:08→16:54)
[2020-03-20] MEDS: PANTOPRAZOLE 40 MG TABLET PO (08:08)
[2020-03-20] MEDS: ENOXAPARIN 40 MG/0.4 ML SYRINGE SUB-Q (08:08)
[2020-03-20 11:09] VITALS: BP 174/77; PULSE 82; RESP 22; TEMP 36.4; O2SAT 98
[2020-03-20 13:49] LABS: Uric Acid 6.7 mg/dL (3.5-8.5)
[2020-03-20] MEDS: lisinopriL 20 MG TABLET PO (13:52)
[2020-03-20] MEDS: LIDOCAINE 5% PATCH 1 PATCH TRANSDERM (13:52)
[2020-03-20] MEDS: KETOROLAC 15 MG/ML VIAL (*BKC) IV PUSH (13:54)
[2020-03-20 15:10] VITALS: BP 144/74; PULSE 85; RESP 20; TEMP 36.1; O2SAT 96
--- NOTE | 2020-03-20 17:40 | PM.DS ---
DS: Admitting Diagnosis Admitting Diagnosis Admitting Diagnosis: Adverse effect of unspecified drugs, medicaments and biological substances, initial encounter DS: Discharge Diagnosis Discharge Diagnosis (1) Adverse drug reaction: Qualifiers: Encounter type: initial encounter Qualified Code(s): T50.905A - Adverse effect of unspecified drugs, medicaments and biological substances, initial encounter Code(s): T50.905A - Adverse effect of unspecified drugs, medicaments and biological substances, initial encounter Status: Acute (2) Nocturia associated with benign prostatic hyperplasia: Code(s): N40.1 - Benign prostatic hyperplasia with lower urinary tract symptoms; R35.1 - Nocturia Status: Acute (3) Acute renal injury: Code(s): N17.9 - Acute kidney failure, unspecified Status: Acute (4) COPD (chronic obstructive pulmonary disease): Qualifiers: COPD type: unspecified COPD Qualified Code(s): J44.9 - Chronic obstructive pulmonary disease, unspecified Code(s): J44.9 - Chronic obstructive pulmonary disease, unspecified Status: Chronic (5) Hypertension: Qualifiers: Hypertension type: essential hypertension Qualified Code(s): I10 - Essential (primary) hypertension Code(s): I10 - Essential (primary) hypertension Status: Chronic (6) Gastroesophageal reflux disease: Qualifiers: Esophagitis presence: esophagitis presence not specified Qualified Code(s): K21.9 - Gastro-esophageal reflux disease without esophagitis Code(s): K21.9 - Gastro-esophageal reflux disease without esophagitis Status: Chronic (7) Cough: Code(s): R05 - Cough Status: Resolved DS: Summary Hospital Course Reason for hospitalization: Weakness, feeling off Hospital Course: Mr. Garcia is an 84 y.o. male with PMH significant for COPD, gout, GERD, and HLD who presented to the emergency department via EMS 03/18/20 due to weakness and feeling off . He recently started baclofen after being diagnosed with muscle spasm at an urgent care. He started the medication on the evening of the and stopped taking it after his morning dose on the . He noted somnolence, fatigue, and generalized weakness. His sx were felt to be due to an adverse reaction from baclofen. Initial workup in the ED revealed mild LAUREEN with BUN 22 and Cr 1.4. He was treated with gentle IV fluids and admitted to the hospitalist service for LAUREEN and to obtain PT/OT evaluation. His renal function returned to baseline with fluids. Baclofen was discontinued and he reported that he was feeling much better. He reported that he usually gets up 4 times a night to urinate. CT abd/pelvis performed 02/07/20 revealed prominent prostate enlargement. Tamsulosin was initiated and he was voiding without difficulty and had less irritative voiding symptoms. Right knee xray revealed collapsed osteochondral lesion versus erosion at the lateral patellar facet and chondrocalcinosis at the medial and lateral menisci. I discussed his case with Dr. Norris who stated he could follow-up outpatient for further evaluation and managemnt of his right knee pain. He recommended hip and pelvis plain films to r/o fracture which was showed moderate right hip osteoarthritis without acute findings. Uric acid was normal. Venous doppler US was negative for DVT. CT cervical spine was performed due to neck soreness and revealed advanced cervical spondylosis. He was encouraged to follow-up with orthopedic surgery for further evaluation of his right knee pain. Lisinopril was reduced to 20mg BID and he was advised to keep a BP log. He was discharged in stable condition on the afternoon of 03/20/20. Status at Discharge Functional status at discharge: independent ambulation Overall status at discharge: patient is back to baseline Time Spent with Patient Time attestation: Total time spent providing and/or coordinating discharge services
[2020-03-21 12:51] LABS: Triiodothyronine T3 Free 2.8 pg/mL (2.3-4.2)
== END 2020-03-20 19:55 | disposition home or self-care (01) ==
LOC: ANHED 17:10 → ANH3MED 17:50
PROVIDERS: Internal Medicine; Physician Assistant; Admitting Provider Internal Medicine; Emergency Provider Emergency Medicine; PCP Internal Medicine; Visit Provider Family Medicine
DX: N17.9 Acute kidney failure, unspecified (principal); R53.1 Weakness; T42.8X5A Adverse effect of antiparkinsonism drugs and other central muscle-tone depressants, initial encounter; N40.1 Benign prostatic hyperplasia with lower urinary tract symptoms; R35.1 Nocturia; M25.561 Pain in right knee; M79.89 Other specified soft tissue disorders; M16.11 Unilateral primary osteoarthritis, right hip; K21.9 Gastro-esophageal reflux disease without esophagitis; R05 Cough; G62.9 Polyneuropathy, unspecified; M10.9 Gout, unspecified; E78.5 Hyperlipidemia, unspecified; Z79.82 Long term (current) use of aspirin; Z79.899 Other long term (current) drug therapy; Z87.891 Personal history of nicotine dependence
CPT/HCPCS: 36415; 70450; 71046; 72125; 73502; 73562; 73564; 80048; 80053; 81001; 82728; 84439; 84443; 84481; 84484; 84550; 85025; 85610; 85730; 86140; 93970; 94640; 96360; 96361; 96372; 96374; 97161; 97165; 99285; A9270; G0378; J1650; J1885; J7030

== ENCOUNTER 2020-06-20 11:47 | Outpatient (CLI) | payer MEDICARE, SELFPAY ==
--- NOTE | ~2020-06-20 | XR_ITS ---
EXAMINATION: XR wrist LT min 3V DATE: 06/20/2020 12:13 INDICATION: Left wrist pain. TECHNIQUE: 4 views of left wrist were obtained. COMPARISON: None. FINDINGS: Bone alignment is normal. No fracture. Joint spaces are well maintained. IMPRESSION: 1. Normal left wrist. Reviewed, dictated and finalized at location A. IMPRESSION: 1. Normal left wrist.
--- NOTE | ~2020-06-20 | XR_ITS ---
EXAMINATION: XR wrist RT min 3V DATE: 06/20/2020 12:13 INDICATION: Right wrist pain. TECHNIQUE: 4 views of right wrist were obtained. COMPARISON: None. FINDINGS: Bone alignment is normal. No fracture. There is mild osteoarthritis of first carpometacarpa l joint. IMPRESSION: 1. Mild osteoarthritis of first carpometacarpal joint. Reviewed, dictated and finalized at location A.
== END 2020-06-20 11:48 | disposition home or self-care (01) ==
LOC: ANHIMG 11:52
PROVIDERS: PCP Internal Medicine; Visit Provider Internal Medicine
DX: M25.532 Pain in left wrist (principal); M25.531 Pain in right wrist
CPT/HCPCS: 73110

== ENCOUNTER 2021-02-04 14:51 | Emergency (ER) | payer MEDICARE, SELFPAY ==
[2021-02-04] VITALS (23 sets, daily range): BP systolic 135–179; BP diastolic 72–125; PULSE 57–96; RESP 15–24; TEMP 36.3; O2SAT 90–100
--- NOTE | ~2021-02-04 | XR_ITS ---
EXAMINATION: XR chest 2V DATE: 02/04/2021 16:37 INDICATION: Shortness of breath TECHNIQUE: PA and lateral views of the chest are obtained. COMPARISON: 03/19/2020 FINDINGS: There are minimal airspace opacities of the right lung base. There is no pleural effusion o r pneumothorax. The cardiomediastinal silhouette is normal. There is mild thoracic spondylosis. IMPRESSION: 1. Minimal right basilar airspace opacity, consistent with atelectasis versus pneumonia. Reviewed, dictated and finalized at location A. IMPRESSION: 1. Minimal right basilar airspace opacity, consistent with atelectasis versus p neumonia.
--- NOTE | ~2021-02-04 | CT_ITS ---
EXAMINATION: CTA chest PE protocol DATE: 02/04/2021 19:18 INDICATION: Shortness of breath TECHNIQUE: Computed tomography angiography (CTA) of the chest was performed with 100 mL Omnipaque-350 intravenous contrast timed to evaluate the pulmonary arteries. Coronal maximum intensity projection 3D-reconstructions were created by the technologist. The dose-length product (DLP) was 698.34 mGy-cm. Automated exposure control and iterative reconstruction technique were employed. COMPARISON: 02/07/2020 FINDINGS: The pulmonary arteries are well-opacified. No pulmonary embolism is identified. The lungs a re free of acute opacities. There is no pleural effusion or pneumothorax. A few chronic subpleural gr oundglass opacities persist which could reflect chronic interstitial lung disease in a pattern of non specific interstitial pneumonia (NSIP). An aberrant origin of the right subclavian artery is again no emre. No pathologically enlarged thoracic lymph nodes are identified. The heart size is normal. There is a small sliding hiatal hernia. Stones are noted in the nondistended gallbladder. Punctate calcific ations of the pancreas are consistent with chronic pancreatitis. There is a 2.5 cm midline fluid jasper ection in the subcutaneous tissues of the upper back the appearance of a sebaceous cyst. There are br idging osteophytes at multiple levels in the spine, consistent with diffuse idiopathic skeletal hyper ostosis (DISH). IMPRESSION: 1. No pulmonary embolism or acute cardiopulmonary abnormality. Reviewed, dictated and finalized at location A.
--- NOTE | 2021-02-04 15:08 | ECG_ITS ---
Measurements Intervals [place]den Rate: 71 P: 83 MN: 155 QRS: 100 QRSD: 130 T: 72 QT: 387 QTc: 423 Interpretive Statements SINUS RHYTHM ATRIAL PREMATURE COMPLEX RIGHT BUNDLE BRANCH BLOCK BASELINE ARTIFACT- I, II, III, AVL, AVF ABNORMAL ECG Electronically Signed On 02-04-2021 18:50:02 CDT by Wild Ibarra D.O.
[2021-02-04 15:21] LABS: Basophils Percent Auto 0.6 % (0.2-1.2); Eosinophils Absolute Auto 0.1 K/mm3 (0-0.3); Eosinophils Percent Auto 0.8 % (0-4.4); Hematocrit 45.7 % (42.0-52.0); Hemoglobin 15.5 g/dL (14.0-18.0); Immature Granulocyte Absolute 0.03 K/mm3 (0.00-0.031); Immature Granulocyte Percent A 0.4 % (0-0.5); Lymphocytes Absolute Auto 2.28 K/mm3 (0.9-3.2); Lymphocytes Percent Auto 31.9 % (18.3-44.2); Mean Corpuscular HGB Conc 33.9 g/dl (32-36); Mean Corpuscular Hemoglobin 34.1 pg (26-34); Mean Corpuscular Volume 100.4 fl (80-100); Monocytes Absolute Auto 0.7 K/mm3 (0.1-0.6); Monocytes Percent Auto 10.2 % (2.6-8.5); Neutrophils Percent Auto 56.1 % (45.5-73.1); Platelet Count Result 227 k/mm3 (150-375); Red Blood Count 4.55 M/mm3 (4.6-6.20); Red Cell Distribution Width 12.9 % (11.5-14.5); White Blood Count 7.1 K/mm3 (4.5-10.0)
[2021-02-04 15:40] LABS: Anion Gap 9 mmol/L (8-16); Blood Urea Nitrogen 19 mg/dL (9-20); Calcium 9.9 mg/dL (8.4-10.2); Carbon Dioxide 24 mmol/L (22-30); Chloride 107 mmol/L (98-107); Estimated Glomerular Filt Rate > 60; Glucose 139 mg/dL (75-110); Potassium 4.3 mmol/L (3.4-5.0); Sodium 140 mmol/L (137-145)
[2021-02-04 15:48] LABS: Troponin I < 0.012 ng/mL (0.000-0.034)
--- NOTE | 2021-02-04 17:25 | ED.SOB ---
HPI - SOB/Dyspnea General Chief Complaint: Shortness of Breath/Dyspnea Stated Complaint: shortness of breath Time Seen by Provider: 02/04/21 17:11 Source: patient Mode of arrival: ambulatory Limitations: no limitations History of Present Illness HPI Narrative: This is an 85 year old male with history of COPD who presents for evaluation of shortness of breath and palpitations. He reports over the past 4 days he has intermittent episodes of heart palpitations and shortness of breath. He states this seems to happen more at night, and he will wake up hyperventilating. He denies diaphoresis, fever, or worsening cough. He denies leg swelling or calf pain. Related Data Home Medications Medication Instructions Recorded Confirmed omega [id number]-usc-[id number]-fish oil 1,000 mg 1 cap PO DAILY cap 07/22/19 01/23/21 (120 mg-180 mg) capsule vit C 250 mg-vit E 90 mg-zinc 40 1 tablet PO BID 07/22/19 01/23/21 mg-copper 1 bc-[id number] capsule naproxen sodium [Aleve] 220 mg PO Q12H PRN 11/30/19 01/23/21 allopurinol 300 mg tablet 150 mg PO HS tablet 12/19/19 01/23/21 aspirin [Adult Low Dose Aspirin] 81 mg PO DAILY 03/18/20 01/23/21 Allergies Allergy/AdvReac Type Severity Reaction Status Date / Time tamsulosin Allergy Intermediate Rash and Verified 02/04/21 16:55 pruritis cephalexin Allergy Mild Keflex Verified 02/04/21 16:55 ciprofloxacin Allergy Mild Hives / Verified 02/04/21 16:55 Red Face baclofen AdvReac Severe Altered Verified 02/04/21 16:55 consciousness nite time equate Allergy Severe Swelling Uncoded 01/23/21 09:24 fennal Allergy Mild Rash Uncoded 01/23/21 09:24 Review of Systems Review of Systems: All systems reviewed & are unremarkable except as noted in HPI and below Constitutional: Constitutional: Denies chills and Denies fever(s) Cardiovascular: Cardiovascular: Reports chest pain, Denies rapid heart rate and Denies radiating jaw, neck or arm pain Respiratory: Respiratory: Reports cough and Reports dyspnea Gastrointestinal: Gastrointestinal: Denies abdominal pain, Denies diarrhea, Denies nausea and Denies vomiting [facility] Past Medical History Medical History Benign prostatic hyperplasia without lower urinary tract symptoms Chronic low back pain COPD (chronic obstructive pulmonary disease) Gastroesophageal reflux disease Gout History of cervical fracture History of gout Hyperlipidemia Hypertension Macular degeneration With right eye blindness FELIX (nonalcoholic steatohepatitis) Peripheral neuropathy Due to prior cervical spine injury Vitamin D deficiency Surgical History Surgical History H/O cervical spine surgery Due to neck fracture in 1971 H/O colonoscopy with polypectomy History of appendectomy History of cataract extraction with lens replacement Right eye History of lumbar surgery L4 Family History Family History (Updated 03/19/20 @ 00:54 by Celina Gonzalez DO) Mother Family history of malignant neoplasm of breast in first degree relative Patient's mother is Father , At 81 years of age Acute myocardial infarction Sibling Patient's sister is Acute myocardial infarction Brother at age 79 Emphysema of lung Brother Mother Breast cancer Other Cerebrovascular accident Social History Social History (Updated 03/19/20 @ 03:18 by Celina Gonzalez DO) Social History: Primary care physician: Dr. Gagandeep Adams Code status: Full code per EMR Smoking packs per day: 1 Smoking cigarettes per day: 20.0 Years smoked: 63 Smoking pack-years: 63.00 Smoking status: Former smoker Tobacco type: cigarettes Smoking end date: 09/21/17 Alcohol intake: current Drinks per week: 2 Substance use: never Additional living arrangements comments: He has been since 2013
[2021-02-04 17:37] LABS: Alveolar/Arterial O2 Gradient 24.9 mmHg; Base Excess ABG 3.3 mEq/l (+/-2.0); Carboxyhemoglobin 0.5 % THb (0-2.0); Fractional Inspired Oxygen 21 %; HCO3 ABG 28.8 mEq/l (22.0-26.0); Methemoglobin ABG 0.3 %THb (0-1.5); Oxygen Saturation ABG 93.8 % (95.0-100.0); Oxyhemoglobin 93.6 % THb (90.0-100.0); PCO2 ABG 46.7 mmHg (35.0-45.0); PO2 ABG 68.9 mmHg (80.0-100.0); PO2 FiO2 Ratio Arterial Blood 3.28 %; Reduced Hemoglobin 5.6 %THb (0-5.0); Total Hemoglobin 15.2 g/dL (12.0-18.0); pH ABG 7.408 (7.350-7.450)
[2021-02-04 17:38] LABS: Device ROOM AIR; Modified Allen's Test Pass; Site Drawn RIGHT RADIAL
--- NOTE | 2021-02-04 18:02 | PC.NURSE ---
Lab called regarding additional lab tests ordered.
[2021-02-04 18:19] LABS: D Dimer 1.14 ug/mL (<0.48)
--- NOTE | 2021-02-04 18:34 | PC.NURSE ---
called lab, Santhosh, asked to add on MG. Was told to just redraw and he confirmed that we have called at least three times to add it on. [id number]
--- NOTE | 2021-02-04 19:13 | PC.NURSE ---
Assumed care of pt at this time. Report from Dipti [place].
== END 2021-02-04 20:20 | disposition home or self-care (01) ==
PROVIDERS: Emergency Medicine; Emergency Provider General Practice; PCP Internal Medicine; Referring Provider Nurse Practitioner
DX: J44.9 Chronic obstructive pulmonary disease, unspecified (principal); R00.2 Palpitations; N40.0 Benign prostatic hyperplasia without lower urinary tract symptoms; K21.9 Gastro-esophageal reflux disease without esophagitis; M10.9 Gout, unspecified; E78.5 Hyperlipidemia, unspecified; I10 Essential (primary) hypertension; H35.30 Unspecified macular degeneration; H54.61 Unqualified visual loss, right eye, normal vision left eye; K75.81 Nonalcoholic steatohepatitis (NASH); G62.9 Polyneuropathy, unspecified; Z98.41 Cataract extraction status, right eye; Z96.1 Presence of intraocular lens; Z87.891 Personal history of nicotine dependence
CPT/HCPCS: 36415; 36600; 71046; 71275; 80048; 82375; 82805; 83050; 83735; 84484; 85025; 85380; 93005; 99284; Q9967

== ENCOUNTER 2021-06-10 15:21 | Outpatient (CLI) | payer MEDICARE, SELFPAY ==
--- NOTE | ~2021-06-10 | US_ITS ---
EXAMINATION: US soft tissue LE DATE: 06/10/2021 15:45 INDICATION: Localized swelling, mass and lump at the anterior left thigh TECHNIQUE: Multiple grayscale ultrasound images of the region of concern at the anterior left thigh w ere obtained. COMPARISON: None FINDINGS: Normal appearance to the subcutaneous fat and underlying musculature at the region of concern at the anterior left thigh. No abnormal masses or fluid collections identified. IMPRESSION: 1. Normal study. No correlate for reported palpable abnormality at the anterior left thigh. Reviewed, dictated and finalized at location A.
== END 2021-06-10 15:22 | disposition home or self-care (01) ==
PROVIDERS: PCP Internal Medicine; Visit Provider Internal Medicine
DX: R22.42 Localized swelling, mass and lump, left lower limb (principal)
CPT/HCPCS: 76882

== ENCOUNTER 2021-07-16 13:50 | Outpatient (CLI) | payer MEDICARE, SELFPAY ==
--- NOTE | ~2021-07-16 | XR_ITS ---
EXAMINATION: XR chest 2V DATE: 07/16/2021 14:21 INDICATION: Chest pain. Shortness of breath. TECHNIQUE: Frontal and lateral views of the chest were obtained. COMPARISON: Chest 2 views 02/04/2021, chest CT 02/04/2021 FINDINGS: There are mild airspace opacities in the lower lung zones. No pleural effusion or pneumotho rax. The heart size is normal. IMPRESSION: 1. Stable mild airspace opacities in the lower lung zones, consistent with atelectasis versus scarrin g. Reviewed, dictated and finalized at location A. IMPRESSION: 1. Stable mild airspace opacities in the lower lung zones, consistent with atel ectasis versus scarring.
[2021-07-16 14:37] LABS: Add Urine Microscopic? YES; Appearance Urine Cloudy (Clear); Bilirubin Urine Negative (Negative); Blood Urine 3+ (Negative); Color Urine Amber (Yellow); Glucose Urine UA 1+ mg/dL (Negative); Ketones Urine Trace mg/dL (Negative); Leukocyte Esterase Ur Negative LEU/UL (Negative); Nitrate Urine Positive (Negative); Protein Urine 2+ mg/dL (Negative); RBC Urine >75 /hpf (0-2); Specific Grav Ur 1.021 (1.001-1.035); Urobilinogen Urine Negative mg/dL (<2.0)
== END 2021-07-16 13:51 | disposition home or self-care (01) ==
PROVIDERS: PCP Internal Medicine; Visit Provider Nurse Practitioner
DX: R31.9 Hematuria, unspecified (principal); R35.0 Frequency of micturition; R07.89 Other chest pain; R91.8 Other nonspecific abnormal finding of lung field
CPT/HCPCS: 71046; 81001; 87086

== ENCOUNTER 2021-07-23 08:37 | Outpatient (CLI) | payer MEDICARE, SELFPAY ==
--- NOTE | ~2021-07-23 | CT_ITS ---
EXAMINATION: CT abdomen pelvis w con INDICATION: Hematuria TECHNIQUE: Computed tomographic images of the abdomen and pelvis were obtained after the administrati on of 100 cc of Omnipaque 350 intravenous contrast. The dose-length product (DLP) was 1096.23 mGy-cm. Automated exposure control and iterative reconstruction technique were employed. COMPARISON: 02/07/2020 FINDINGS: Minimal dependent atelectasis is present in the lung bases. The heart size is normal. There is a small sliding hiatal hernia. Punctate calcifications of the pancreas are consistent with chroni c pancreatitis. The spleen, and adrenal glands are normal. Stones are present in the nondistended gal lbladder. There is mild atrophy of the kidneys. There is calcified atherosclerosis of the aorta and m any of the other arteries. No pathologically enlarged abdominal or pelvic lymph nodes are identified. There is an approximately 2.3 x 1.4 cm soft tissue mass of the right posterolateral bladder wall. Th ere is moderate lumbar spondylosis. IMPRESSION: 1. Soft tissue mass of the right posterolateral bladder wall concerning for urothelial carcinoma. Cys toscopy is recommended. Reviewed, dictated and finalized at location B. IMPRESSION: 1. Soft tissue mass of the right posterolateral bladder wall concerning for uro thelial carcinoma. Cystoscopy is recommended.
[2021-07-23 09:00] LABS: Estimated Glomerular Filt Rate > 60
== END 2021-07-23 08:38 | disposition home or self-care (01) ==
PROVIDERS: PCP Internal Medicine; Visit Provider Nurse Practitioner
DX: R31.9 Hematuria, unspecified (principal); N32.9 Bladder disorder, unspecified
CPT/HCPCS: 74177; Q9967

== ENCOUNTER 2021-09-04 11:11 | Outpatient (CLI) | payer MEDICARE, SELFPAY ==
[2021-09-04 11:55] LABS: Basophils Percent Auto 0.5 % (0.2-1.2); Eosinophils Absolute Auto 0.1 K/mm3 (0-0.3); Eosinophils Percent Auto 0.8 % (0-4.4); Hemoglobin 14.8 g/dL (14.0-18.0); Immature Granulocyte Absolute 0.03 K/mm3 (0.00-0.031); Immature Granulocyte Percent A 0.5 % (0-0.5); Lymphocytes Percent Auto 33.6 % (18.3-44.2); Mean Corpuscular HGB Conc 32.9 g/dl (32-36); Mean Corpuscular Hemoglobin 34.8 pg (26-34); Mean Corpuscular Volume 105.9 fl (80-100); Mean Platelet Volume 11.7 fl (7.4-10.4); Monocytes Absolute Auto 0.6 K/mm3 (0.1-0.6); Monocytes Percent Auto 10.7 % (2.6-8.5); Neutrophils Absolute Auto 3.2 K/mm3 (1.3-6.7); Neutrophils Percent Auto 53.9 % (45.5-73.1); Platelet Count Result 224 k/mm3 (150-375); Red Blood Count 4.25 M/mm3 (4.6-6.20); Red Cell Distribution Width 12.8 % (11.5-14.5)
[2021-09-04 12:05] LABS: Partial Thromboplastin Time 32.7 SECONDS (22.3-36.8)
[2021-09-04 12:08] LABS: INR 0.9; Prothrombin Time 12.1 Seconds (11.1-14.7)
[2021-09-04 12:14] LABS: Anion Gap 8 mmol/L (8-16); Blood Urea Nitrogen 16 mg/dL (9-20); Calcium 9.7 mg/dL (8.4-10.2); Carbon Dioxide 30 mmol/L (22-30); Chloride 101 mmol/L (98-107); Estimated Glomerular Filt Rate > 60; Glucose 113 mg/dL (65-110); Sodium 139 mmol/L (137-145)
== END 2021-09-04 11:12 | disposition home or self-care (01) ==
LOC: ANHSURGERY 11:16
PROVIDERS: PCP Internal Medicine; Visit Provider Urology
DX: Z01.812 Encounter for preprocedural laboratory examination (principal); R31.9 Hematuria, unspecified
CPT/HCPCS: 36415; 80048; 85025; 85610; 85730; 87086; 87088

== ENCOUNTER 2021-09-24 01:49 | Day surgery (SDC) | payer MEDICARE, SELFPAY ==
[2021-09-02 11:32] VITALS: BMI 27.5
--- NOTE | 2021-09-02 11:38 | PC.NURSE ---
Report to the Outpatient Waiting Room, entrance under the green pavilion located off [facility], at time _0600 on date _09/10/21 . OR Time: 729 . - You and your visitor will be asked a series of questions to screen for COVID 19 for your protection. - A mask is required within the hospital. - Only one visitor is allowed at this time. Patient visitors will be guided where to wait when not with patient. Preoperative COVID Testing Requirements: No COVID Test needed if: (proof is required; if not received patient will have Rapid Test prior to entry) - Patient has received COVID Vaccine at least 14 days prior to procedure date or - Patient has positive COVID test result within last 90 days of surgery date. COVID Test needed if above criteria is not met If not COVID vaccinated a COVID test must be conducted within 72 hours of surgery and patient is asked to isolate self from time of testing until procedure. You will go to the [employer] [facility] Site for your COVID testing. The [employer] [facility] site is located at the corner of [address] [facility]. You will only be called if COVID results are positive and your surgeon may reschedule your elective surgery date. Patients may have clear liquids (water, carbonated beverages, clear teas, apple juice) until 3 hours prior to surgery with a maximum of 20 ounces. - No food from midnight until time of surgery - Infants may have breast milk until 4 hours before surgery, infant formula 6 hours prior to surgery. - Children will be allowed to drink immediately following surgery. If applicable, please bring a bottle or sippy cup to assist with drinking. Juice, water, soda, and popsicles are readily available. For infants on formula, please bring formula the day of surgery. Pacifiers are allowed. Take the following medications with a SIP of water the morning of surgery: ___INHALER Medications to discontinue per physician __ALL VITAMINS AND SUPPLEMENTS 3 DAYS PRE OP Date to take last dose__09/06/21 Please no make-up, nail albanian, hairspray, perfume, deodorant, or body powder the day of surgery. No jewelry (including any body piercings) or valuables the day of surgery, leave them at home. Please take a shower or bath the night before, or the morning of, surgery with an antibacterial soap. Wear comfortable, loose fitting clothing. Children are encouraged to wear pajamas. - Jewelry must be removed prior to entering the operating room. Rings and piercings that are not removed may be cut off. - The hospital will not accept responsibility for valuables. - Please leave all valuables, including medications, at home the day of surgery. If you are going home after surgery, a licensed driver license agent must drive you home. - NO public transportation without another adult. - We recommend that an adult stay with you for 24 hours following discharge. - We also recommend that you do not drive, make important decision, drink alcoholic beverages, or take any drugs that were not prescribed by your health care provider for at least 24 hours after your discharge time. For Pediatric surgeries, we recommend two adults accompany the child home (only one inside the building at this time). Follow any additional instructions given to you from your surgeon. Telephone instructions given to __PATIENT and asked if any additional questions and then verbalized understanding. Patient advised to call surgeon office or pre surgery nurse liaison [phone] if any additional questions.
--- NOTE | 2021-09-11 10:15 | PC.NURSE ---
Addendum entered by Alesha Melara RN 09/11/21 10:19: PT INFORMED CAN USED EYE GTTS IF NEEDED - UNDERSTANDING VOICED Original Note: Report to the Outpatient Waiting Room, entrance under the green pavilion located off [facility], at time _0745__ on date _09/24/21 . OR Time: . - You and your visitor will be asked a series of questions to screen for COVID 19 for your protection. - A mask is required within the hospital. - Only one visitor is allowed at this time. Patient visitors will be guided where to wait when not with patient. Preoperative COVID Testing Requirements: No COVID Test needed if: (proof is required; if not received patient will have Rapid Test prior to entry) - Patient has received COVID Vaccine at least 14 days prior to procedure date or - Patient has positive COVID test result within last 90 days of surgery date. COVID Test needed if above criteria is not met If not COVID vaccinated a COVID test must be conducted within 72 hours of surgery and patient is asked to isolate self from time of testing until procedure. You will go to the [employer] [facility] for your COVID testing. The [employer] [facility] site is located at the corner of [address] [facility]. You will only be called if COVID results are positive and your surgeon may reschedule your elective surgery date. Patients may have clear liquids (water, carbonated beverages, clear teas, apple juice) until 3 hours prior to surgery with a maximum of 20 ounces. - No food from midnight until time of surgery - Infants may have breast milk until 4 hours before surgery, infant formula 6 hours prior to surgery. - Children will be allowed to drink immediately following surgery. If applicable, please bring a bottle or sippy cup to assist with drinking. Juice, water, soda, and popsicles are readily available. For infants on formula, please bring formula the day of surgery. Pacifiers are allowed. Take the following medications with a SIP of water the morning of surgery: INHALER Medications to discontinue per physician ___ALL VITAMINS & SUPPLEMENTS - 3 DAYS PRIOR TO SURGERY PER ANESTHESIA Date to take last dose____09/20/21 Please no make-up, nail indian, hairspray, perfume, deodorant, or body powder the day of surgery. No jewelry (including any body piercings) or valuables the day of surgery, leave them at home. Please take a shower or bath the night before, or the morning of, surgery with an antibacterial soap. Wear comfortable, loose fitting clothing. Children are encouraged to wear pajamas. - Jewelry must be removed prior to entering the operating room. Rings and piercings that are not removed may be cut off. - The hospital will not accept responsibility for valuables. - Please leave all valuables, including medications, at home the day of surgery. If you are going home after surgery, a licensed class b driver must drive you home. - NO public transportation without another adult. - We recommend that an adult stay with you for 24 hours following discharge. - We also recommend that you do not drive, make important decision, drink alcoholic beverages, or take any drugs that were not prescribed by your health care provider for at least 24 hours after your discharge time. For Pediatric surgeries, we recommend two adults accompany the child home (only one inside the building at this time). Follow any additional instructions given to you from your surgeon. Telephone instructions given to ____PT and asked if any additional questions and then verbalized understanding. Patient advised to call surgeon office or pre surgery nurse liaison [phone] if any additional questions.
[2021-09-24] VITALS (13 sets, daily range): BP systolic 132–178; BP diastolic 64–90; PULSE 50–66; RESP 14–18; TEMP 36.4–36.9; O2SAT 97–100
--- NOTE | 2021-09-24 07:11 | WPDANESEPPF ---
Anes - Initial Pre Proc Eval Procedure: Operation Date: 09/24/21 09:45 Proposed Procedures p Cystoscopy, Bladder Clot Evacuation - Chintan Carvajal MD s Possible Trans Urethral Resection Bladder Tumor - Chintan Carvajal MD Date/Time: 09/24/21 07:11 Surgeon: Chintan Carvajal MD Pre Op Diagnosis: Gross Hematuria UTI Patient Data Age: 86 Gender: M Height: 1.77 m Weight: 85.75 kg Allergies Allergy/AdvReac Type Severity Reaction Status Date / Time tamsulosin Allergy Intermediate Rash and Verified 09/24/21 07:51 pruritis cephalexin Allergy Mild Swelling Verified 09/24/21 07:51 of Lip/Tongue/Throat ciprofloxacin Allergy Mild Hives / Verified 09/24/21 07:51 Red Face baclofen AdvReac Severe Altered Verified 09/24/21 07:51 consciousness nite time equate Allergy Severe Swelling Uncoded 09/24/21 07:51 fennal Allergy Mild Rash Uncoded 09/24/21 07:51 Home Medications Medication Instructions Recorded Confirmed Type acetaminophen [Mapap 650 mg PO Q4H PRN 30 Days #30 03/20/20 09/24/21 Rx (acetaminophen)] tablet tramadol 50 mg tablet 50 mg PO Q8H PRN #60 tablet 05/24/21 09/24/21 Rx allopurinol 300 mg tablet 300 mg PO DAILY 07/16/21 09/24/21 History vitamins A,C,I-vtmy-eascwq 7,160 2 tablet PO BID 07/16/21 09/24/21 History unit-113 mg-100 unit tablet albuterol sulfate 90 mcg/actuation 2 puff INHALATION Q4-6H PRN #18 gm 08/26/21 09/24/21 Rx aerosol inhaler peg 400-propylene glycol (PF) 1 drp EACH EYE BID PRN 09/11/21 09/24/21 History [Systane (PF)] Patient hx anesthesia problems: none Family hx anesthesia problems: none Results Review: All pre-operative results and documents have been reviewed as part of the pre-operative evaluation. 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 Vitamin D deficiency Surgical History Surgical History H/O cervical spine surgery Due to neck fracture in 1971 H/O colonoscopy with polypectomy History of appendectomy History of cataract extraction with lens replacement Right eye History of lumbar surgery L4 Family History Family History (Updated 03/19/20 @ 00:54 by Celina Gonzalez DO) Mother Family history of malignant neoplasm of breast in first degree relative Patient's mother is Father , At 81 years of age Acute myocardial infarction Sibling Patient's sister is Acute myocardial infarction Brother at age 79 Emphysema of lung Brother Mother Breast cancer Other Cerebrovascular accident Social History Social History (Updated 07/16/21 @ 12:31 by Ludivina Boston CNA) Social History: Primary care physician: Dr. Gagandeep Adams Code status: Full code per EMR Smoking packs per day: 1 Smoking cigarettes per day: 20.0 Years smoked: 63 Smoking pack-years: 63.00 Smoking status: Former smoker Tobacco type: cigarettes Second hand tobacco smoke exposure: Yes Smoking end date: 09/21/17 Alcohol intake: current Drinks per week: 1 Alcohol use details: He drinks about 4 beers a week and occasional mixed drink. Substance use: never Substance use type: does not use Living arrangements: alone Additional living arrangements comments: He has been since 2014 and lives at home alone. He has 1 daughter and 2 sons. Additional occupation/education comments: He is retired from the [employer]. Gender identity (if verbalized by th
--- NOTE | 2021-09-24 08:10 | WPDHPUPDATE1 ---
History and Physical Update Update Date/Time: 09/24/21 08:10 History and Physical has been reviewed, including an updated exam of the patient. There are NO changes in the patient's condition. Risks, benefits, and alternatives have been discussed and questions answered. Patient agrees to proceed with procedure.
[2021-09-24 08:22] LABS: Add Urine Microscopic? YES; Appearance Urine Cloudy (Clear); Bilirubin Urine Negative (Negative); Blood Urine 3+ (Negative); Color Urine Red (Yellow); Glucose Urine UA Negative (Negative); Ketones Urine Negative (Negative); Leukocyte Esterase Ur Negative LEU/UL (Negative); Nitrate Urine Negative (Negative); Protein Urine 2+ mg/dL (Negative); RBC Urine >75 /hpf (0-2); Specific Grav Ur 1.015 (1.001-1.035); Urobilinogen Urine Negative mg/dL (<2.0); WBC Urine 31-50 /hpf
[2021-09-24] MEDS: LACTATED RINGERS 1,000 ML 30 ML IV CONT (08:29)
--- NOTE | 2021-09-24 09:13 | WPDHPUPDATE1 ---
History and Physical Update Update Date/Time: 09/24/21 09:13 History and Physical has been reviewed, including an updated exam of the patient. There are NO changes in the patient's condition. Risks, benefits, and alternatives have been discussed and questions answered. Patient agrees to proceed with procedure.
[2021-09-24] MEDS: AZTREONAM 1 GM in DEXTROSE 5% IN WATER 50 ML 100 ML IVPB (09:34)
[2021-09-24] MEDS: LIDOCAINE HCL 2% GEL UROJET 10 ML PKG MUCOUS MEM (09:42)
--- NOTE | 2021-09-24 10:03 | P.OP_ITS ---
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 Once anesthesia was obtained was placed in dorsal lithotomy position and prepped draped usual sterile fashion. Twenty-two Surinamese scope was inserted the bladder. It does have an enlarged prostate. There is some clots along the floor. These were evacuated out. Once this was performed was noticed that he had a small 1.5 cm tumor along the right floor just proximal to the right ureteral orifice. We placed a 24 Surinamese resectoscope sheath and resected the tumor. We fulgurated the base. There was good hemostasis. 2% viscous lidocaine was inserted urethra patient is taken recovery stable condition. He will call for path results 1 weeks time. Drains No Packing No Pathology yes Complications No immediate complications Condition stable Disposition PACU
[2021-09-24] MEDS: oxyCODONE HCL (*CRX) 5 MG TAB IR PO (12:03)
== END 2021-09-24 14:15 | disposition home or self-care (01) ==
PROVIDERS: PCP Internal Medicine; Visit Provider Urology
PROC: 0TCB8ZZ Extirpation of Matter from Bladder, Via Natural or Artificial Opening Endoscopic (ICD-10-PCS; CPT 52001; principal; 2021-09-24 09:45)
PROC: 0TBB8ZZ Excision of Bladder, Via Natural or Artificial Opening Endoscopic (ICD-10-PCS; CPT 52234; 2021-09-24 09:45)
DX: C67.0 Malignant neoplasm of trigone of bladder (principal); N30.21 Other chronic cystitis with hematuria; I10 Essential (primary) hypertension; E78.5 Hyperlipidemia, unspecified; J44.9 Chronic obstructive pulmonary disease, unspecified; N40.0 Benign prostatic hyperplasia without lower urinary tract symptoms; G62.9 Polyneuropathy, unspecified; K75.81 Nonalcoholic steatohepatitis (NASH); M10.9 Gout, unspecified; H35.30 Unspecified macular degeneration; E55.9 Vitamin D deficiency, unspecified; Z79.51 Long term (current) use of inhaled steroids; Z79.891 Long term (current) use of opiate analgesic; Z87.891 Personal history of nicotine dependence
CPT/HCPCS: 52234; 36415; 80048; 81001; 85025; 85610; 85730; 87086; 87088; 88305; A9270; J1100; J2405; J2704; J3010; J7120